=== PATIENT | male | born 1940 | race Two or more races ===

== ENCOUNTER 2021-05-14 11:19 | Outpatient (AMB) | payer MEDICARE, MEDICAID, SELFPAY ==
[2021-05-14 11:49] VITALS: BP 152/67; PULSE 53; TEMP 36.4
--- NOTE | 2021-05-14 11:49 | URONOTE_ITS ---
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 Is patient in pain?: No Allergy Allergies No Known Allergies Allergy (Verified 05/14/21 11:50) Home Meds Medication Reconciliation tamsulosin 0.4 mg capsule (Flomax) 0.8 mg PO QDAY #0 capsr 08/20/15 [History Confirmed 05/14/21] aspirin 81 mg tablet,delayed release (Aspir-) 1 tab PO QDAY 07/13/17 [History Confirmed 05/14/21] bumetanide 2 mg tablet 2 mg PO BID 07/13/17 [History Confirmed 05/14/21] sitagliptin 100 mg tablet (Januvia) 100 mg PO QDAY 07/13/17 [History Confirmed 05/14/21] calcitriol 0.5 mcg capsule 0.5 mcg PO BID cap 12/27/17 [History Confirmed 05/14/21] febuxostat 80 mg tablet (Uloric) 80 mg PO QDAY 12/27/17 [History Confirmed 05/14/21] atorvastatin 10 mg tablet 10 mg PO QDAY 03/04/18 [History Confirmed 05/14/21] insulin glargine 100 unit/mL subcutaneous solution (Lantus U-100 Insulin) 10 unit SUBCUT BID 03/04/18 [History Confirmed 05/14/21] colchicine 0.6 mg tablet 0.6 mg PO QDAY 05/18/18 [History Confirmed 05/14/21] sulfamethoxazole 800 mg-trimethoprim 160 mg tablet (Bactrim DS) 1 tab PO BID #14 tab 05/09/21 [Rx Confirmed 05/14/21] Nurse Note: Present with Dr Demarco in exam room. Catheter removed by Grace VICTOR. Patient to follow up in 6 months. mvp Fall Screening Do you have a fear of falling?: No Have you had a fall in the last 2 months?: No Do you use an assistive device for ambulation?: Yes (walker) Current Vital Signs Weight Weight Measurement Method Temperature Temperature Source Pulse Rate Pulse Source Blood Pressure 93.553 kg Standing Scale 97.5 F Temporal Artery Scan 53 L Monitor 152/67 H 05/14/21 11:49 05/14/21 11:49 05/14/21 11:49 05/14/21 11:49 05/14/21 11:49 05/14/21 11:49 05/14/21 11:49 Blood Pressure Source Blood Pressure Location Blood Pressure Position Automatic Cuff Left Upper Arm Sitting 05/14/21 11:49 05/14/21 11:49 05/14/21 11:49 Nursing Documentation Social History Living Situation History Lives With: Spouse Housing: House Tobacco History Smoking Status: Never smoker Second Hand Smoke Exposure: No Alcohol History Alcohol Intake: Never Alcohol Intake Frequency: holidays/special occasions only Office Procedures Uro DC Catheter DC Catheter Date Urinary Catheter Removed: 05/14/21 Time Urinary Catheter Removed: 13:00 Urinary Catheter Intact After Removal: Yes Medication Given Medication Given Medication Given: Yes Route: IM Uro Level of Care Nursing/Assessment/Reassessment Patient Status: Established Patient Nursing Assessment/Reassessment: Update [facility] data in EMR, Vital Signs and Medication Reconciliation Coordination of Care: Simp Pt/Fam Ed for care Special Needs: Language special needs Established Patient Point Assignment: 50 Established Patient Point Charge: EP Level 2 (40-75) Procedure IM Injection: Yes Transrectal Ultrasound: No Office Meds gentamicin Performing Provider: Troy Demarco MD Administered by: Grace Maddox RN on 05/14/21 12:59 Dose Route Admin Location Lot Number Expiration Date NDC Parakeet Raiser 120 mg IM right [facility] Office Visit Office Visit Date of visit:: May 14, 2021 11:19 Allergies & Home Medications: Allergies No Known Allergies Allergy (Verified 05/08/21 22:20) Visit: Reason for visit: [] Office Visit findings: []
--- NOTE | 2021-05-15 08:17 | ESPR_ITS ---
RE: KHALIF CONSTANTINO : 1940 DATE OF SERVICE: 05/14/2021 CHIEF COMPLAINT: Status post placement of Newell catheter in the Emergency Room and the patient is here for removal of the catheter. End-stage renal disease. BPH with urinary obstruction. COMORBID CONDITIONS: Diabetes mellitus. Hypertension. HISTORY OF PRESENT ILLNESS: This is a 80-year-old gentleman. He has end-stage renal disease. He is on dialysis. He went to the Emergency Room because he was unable to urinate for six hours. He is making little urine. When he went to the Emergency Room, he was not on dialysis. He has no fever, chills, gross hematuria. Past medical history, family history, review of systems, and personal history, please refer to patient history form dated, 05/14/2021. It is in HPI, in EMR. PHYSICAL EXAMINATION: General: Condition is satisfactory. Orientation x3. Vital Signs: Stable. They are in the HPI, in EMR. HEENT: Normocephalic, atraumatic. Eyes: No anemia or jaundice. Neck: Supple. Trachea is central. Thyroid is not enlarged. Chest: Symmetrical. Heart: Regular rate and rhythm. Abdomen: Obese. No masses. Liver, spleen, kidney not palpable. No CVA tenderness: This is a Swedish-speaking gentleman. Extremities: Revealed no edema, cyanosis, or clubbing. VARIOUS LABS: BUN is 60, creatinine is 4.8, GFR 13. The patient has declined any urological workup. He does not want a prostate ultrasound and he does not want to go for PSA testing and he just wanted the catheter to be removed. His catheter is removed. Gentamicin 120 mg is given. Followup appointment with Dr. White and followup appointment with me in six months or p.r.n. DT: 12:57:42 TT: 16:19:00 Ref: [id number] - TID: [id number] MTDD
== END 2021-05-14 13:00 | disposition home or self-care (01) ==
LOC: HODURO 11:19
PROVIDERS: PCP Internal Medicine; Visit Provider Urology

== ENCOUNTER 2024-05-23 05:08 | Emergency (ER) | payer MEDICARE, MEDICAID, SELFPAY ==
[2024-05-23 05:08] VITALS: BMI 37.3
--- NOTE | 2024-05-23 05:11 | PD.EDCPR ---
ED CPR RME/HPI General Chief Complaint: Cardiac Arrest/CPR Stated Complaint: [facility] Arrival date/time: 05/23/24 05:08 RME / HPI RME / HPI narrative: Dr. Sánchez's Main ED Evaluation: 83yo male with a history of ESRD on HD, CHF, HTN, DM, BPH BIBA presents to the ED with CPR actively in progress. Patient was seen by me immediately upon arrival at 0507. Patient was intubated at 0516. Per EMS, patient was found down on the side of the road in the passenger's seat in a van. EMS arrived on scene at 0440, at which time CPR was started. EMS administered 5 epi en route with the last being given at 0505. Full ROS is unobtainable due to the patient's medical condition. Despite ED staff's best efforts, patient at 0521. Related Data Home Medications ?Medication ?Instructions ?Recorded ?Confirmed tamsulosin 0.4 mg capsule (Flomax) 0.8 mg PO QDAY ##0 08/20/15 05/14/21 aspirin 81 mg tablet,delayed 1 tab PO QDAY 07/13/17 05/14/21 release (Aspir-) bumetanide 2 mg tablet 2 mg PO BID 07/13/17 05/14/21 sitagliptin phosphate 100 mg 100 mg PO QDAY 07/13/17 05/14/21 tablet (Januvia) calcitriol 0.5 mcg capsule 0.5 mcg PO BID 12/27/17 05/14/21 febuxostat 80 mg tablet (Uloric) 80 mg PO QDAY 12/27/17 05/14/21 atorvastatin 10 mg tablet 10 mg PO QDAY 03/04/18 05/14/21 insulin glargine 100 unit/mL 10 unit subcut BID 03/04/18 05/14/21 subcutaneous solution (Lantus U-100 Insulin) colchicine 0.6 mg tablet 0.6 mg PO QDAY 05/18/18 05/14/21 Previous Rx's ?Medication ?Instructions ?Recorded sulfamethoxazole 800 1 tab PO BID #14 tabs 05/09/21 mg-trimethoprim 160 mg tablet (Bactrim DS) Allergies Allergy/AdvReac Type Severity Reaction Status Date / Time No Known Allergies Allergy Verified 05/23/24 05:23 Review of Systems Review of Systems ROS Unobtainable: unobtainable due to medical condition ED Exam Narrative Physical exam: GEN. APPEARANCE: Patient was in cardiac-respiratory arrest with CPR in progress. There is food coming out of the patient's mouth. VITALS: Unobtainable. HEENT: Normocephalic, atraumatic. NECK: Supple, no JVD. CHEST: No deformity and no crepitus. ABDOMEN: Soft, distended. GENITALIA: Not examined. RECTAL EXAM: Not done. EXTREMITIES: Flaccid. No edema. I/O to the left ankle. SKIN: Cool and dry, no rashes noted. NEURO: GCS is 3. Course Course Course Narrative: 05: I spoke with the patient's family. states the patient was complaining of shortness of breath when he was being placed in the car to go to dialysis. Family was given to ask any questions, at which time they were all answered. Quality Measures none Procedures -ED Intubation Time out performed: No (performed emergently) Laryngoscope: fiber optic video scope Assist Device Used: fiber optic device ET Tube Size: 7.5 ET Tube Uncuffed: No Tube Secured Depth (cm): 23 Tube Secured Location: teeth Tube Placement Confirmation: visualized tube passing through cords, equal breath sounds bilaterally, no breath sounds over epigastrium and confirmation by capnometry Patient Tolerated Procedure: well and no complications Cardiac Arrest / CPR Patient data External records reviewed:: [facility] previous records (Per chart review, patient was seen here on 09/24/23 for anemia.) Clinical information provided by:: EMS Social determinants that could affect healthcare access:: none Patient has the following chronic illnesses:: ESRD on HD, DM, CHF, HTN, BPH How is presenting disease/condition affected by chronic disease/condition?: uneffected by Evaluation data The following diagnostics were reviewed and interpreted by me:: other (specify) (none) Lab and/or radiology exams considered but not ordered:: none Interpretation Summary: none Medications / Prescriptions Medications or Prescriptions considered but not ordered:: none Medication administrations:: Epinephrine, Sodium Bicarb. See code sheet for medication details. Consultations Consultation(s) initiated? (list below): No Diagnosis Cardiac arrest differential diagnosis: cardiac arrest and other (acute DC, arrhythmia, sepsis, drug overdose, heart failure, hyperkalemia, aspiration pneumonia) Most likely diagnosis given after review of the tests above:: cardiac arrest Admission Indicated Admission indicated?: not indicated Admission Request Was there a request for admission?: No Disposition Plan Disposition Plan: other (specify) (Patient .) Discharge Plan Plan Patient Disposition: Prescriptions/Referrals Referrals: Maddy White MD [Primary Care Provider] - In 1 week Problem List Clinical Impression: Acute hypoxemic respiratory failure, Cardiac arrest, ESRD on hemodialysis Patient/Caregiver Discharge Instructions Print Language: Icelandic
--- NOTE | 2024-05-23 05:52 | PC.NURSE ---
[facility] CONTACTED, SPOKE TO TARIQ FROM DISPATCH AND INFORMED HER OF PTS . PER DISPATCH WILL FORWARD INFORMATION. ALL QUESTIONS ANSWERED.
--- NOTE | 2024-05-23 06:10 | PC.RT ---
assissted Dr. Reynolds with intubation refer to Dr. braden.
--- NOTE | 2024-05-23 06:10 | PC.NURSE ---
[employer] WAS CONTACTED. SPOKE TO SHERMAN BRIAN. [facility]FER[facility]#[phone].
--- NOTE | 2024-05-23 06:19 | PC.NURSE ---
PATIENT WAS BIBBA FOR CARDIAC ARREST TO ER ROOM 3 FROM HOME. PER EMS PATIENT WAS ON HIS WAY TO DIALYSIS APPOINTMENT WITH DIALYSIS NURSE WHEN PATINENT BECAME UNRESPONSIVE IN CAR. AMBULANCE WAS CALLED CPR WAS STARTED ON SCENE TO AT 0440, 5 ROUNDS OF EPINEPHRINE AND LACTIC RINGERS WERE GIVEN PRIOR TO ARRIVAL. CPR WAS IN PROCESS AT TIME OF ARRIVAL TO ER. DR. CARLISLE, RT AND [facility]ER[facility] STAFF WAS AT BEDSIDE AT TIME OF ARRIVAL. SEE CODE SHEET FOR DETAILS OF CODE BLUE.
--- NOTE | 2024-05-23 09:45 | PC.NURSE ---
PATIENT PICKED UP BY HOME
--- NOTE | 2024-05-23 10:51 | PC.NURSE ---
FAMILY PRESENT AT RELEASE TO HOME. FAMILY ASKING FOR PATIENT WALLET. NO WALLET FOUND AT BEDSIDE OR WITH REGISTRATION. SANITATION WORKER CLEANING EQUIPMENT AND NURSING SECRETARY MADE AWARE. IF WALLET IS FOUND CALL PATRICK DOUGIE AT .
== END 2024-05-23 10:12 | disposition expired ==
PROVIDERS: Emergency Provider Emergency Medicine; PCP Internal Medicine
DX: I46.9 Cardiac arrest, cause unspecified (principal); J96.01 Acute respiratory failure with hypoxia; N18.6 End stage renal disease; Z99.2 Dependence on renal dialysis; I13.2 Hypertensive heart and chronic kidney disease with heart failure and with stage 5 chronic kidney disease, or end stage renal disease; E11.22 Type 2 diabetes mellitus with diabetic chronic kidney disease; I50.9 Heart failure, unspecified
CPT/HCPCS: 31500; 92950; 99285; J0171